=== PATIENT | female | born 1970 | race Caucasian/White ===

== ENCOUNTER 2017-07-06 04:04 | Emergency (ER) | payer SELFPAY ==
[2017-07-06 09:38] LABS: ADD MAN DIFF? NO
[2017-07-06 09:44] LABS: WHITE BLOOD COUNT 14.4 10^3/ul (4.8-10.8)
[2017-07-06 09:44] LABS: BASOPHILS % 0.2 % (0.0-2.0); EOSINOPHILS % 0.2 % (0.0-7.0); HEMATOCRIT 41.7 % (37.0-47.0); HEMOGLOBIN 13.4 g/dl (12.0-16.0); LYMPHOCYTES # 0.9 10^3/ul (0.8-2.9); LYMPHOCYTES % 6.1 % (15.0-51.0); MEAN CORPUSCULAR HEMOGLOBIN 28.6 pg (29.0-33.0); MEAN CORPUSCULAR HGB CONC 32.1 g/dl (32.0-37.0); MEAN CORPUSCULAR VOLUME 88.9 fl (82.0-101.0); MEAN PLATELET VOLUME 10.3 fl (7.4-10.4); MONOCYTE # 0.4 10^3/ul (0.3-0.9); MONOCYTES % 2.7 % (0.0-11.0); NEUTROPHIL # 13.1 10^3/ul (1.6-7.5); NEUTROPHILS % 90.5 % (39.0-77.0); PLATELET COUNT 319 10^3/UL (140-415); RED BLOOD COUNT 4.69 10^6/ul (4.20-5.40); RED CELL DISTRIBUTION WIDTH 13.2 % (11.5-14.5)
[2017-07-06 10:04] LABS: PARTIAL THROMBOPLASTIN TIME 31.5 Sec (25.0-35.0)
[2017-07-06 10:09] LABS: PROTIME 12.2 Sec (11.9-14.9)
[2017-07-06 10:36] LABS: ALANINE AMINOTRANSFERASE 61 IU/L (13-69); ALBUMIN 4.8 g/dl (3.3-4.9); ALKALINE PHOSPHATASE 114 IU/L (42-121); AMYLASE 67 U/L (11-123); ANION GAP 18 (8-16); ASPARTATE AMINO TRANSFERASE 39 IU/L (15-46); BLOOD UREA NITROGEN 16 mg/dl (7-20); CALCIUM 9.5 mg/dl (8.4-10.2); CARBON DIOXIDE 26 mmol/L (21-31); CHLORIDE 103 mmol/L (97-110); CREATININE 0.57 mg/dl (0.44-1.00); GLUCOSE 138 mg/dl (70-220); LIPASE 33 U/L (23-300); POTASSIUM 4.3 mmol/L (3.5-5.1); SODIUM 143 mmol/L (135-144)
[2017-07-06 10:39] LABS: TROPONIN-I < 0.012 ng/ml (0.00-0.12)
[2017-07-06] MEDS: BELLADONNA/PHENOBARBITAL TAB PO (10:53)
[2017-07-06] MEDS: ONDANSETRON 4 MG INJ IV (10:53)
[2017-07-06] MEDS: LIDOCAINE/MYLANTA 40 ML BTL PO (10:54)
[2017-07-06] MEDS: morphine 4 MG/ML VIAL IV (10:54)
[2017-07-06] MEDS: SOD CHLORIDE 0.9% 1,000 ML IV (10:54)
[2017-07-06] MEDS: SOD CHLORIDE 0.9% 100 ML (11:33)
[2017-07-06] MEDS: IOHEXOL 300MG/ML 150 ML BTL (11:33)
[2017-07-06] MEDS: KETOROLAC 30 MG INJ IV (12:29)
== END 2017-07-06 13:15 | disposition home or self-care (01) ==
LOC: E/R 04:04
DX: K80.20 Calculus of gallbladder without cholecystitis without obstruction (principal); K57.30 Diverticulosis of large intestine without perforation or abscess without bleeding
CPT/HCPCS: 71045; 74177; 80053; 82150; 83690; 84484; 84703; 85025; 85610; 85730; 93005; 96374; 96375; 99285-25